=== PATIENT | female | born 1995 | race African-American/Black ===

== ENCOUNTER 2021-12-11 08:46 | Outpatient (CLI) | payer OTHER, SELFPAY ==
--- NOTE | ~2021-12-11 | US_ITS ---
EXAMINATION: US abdomen limited DATE: 12/11/2021 09:22 INDICATION: Hepatic steatosis TECHNIQUE: Multiple grayscale and Doppler ultrasound images of the abdomen were obtained. COMPARISON: None available FINDINGS: Bowel gas obscures visualization of the pancreas. The visualized portions of the pancreas a re unremarkable. The liver is normal with normal echogenicity and echotexture. No surface nodularity. Normal hepatopetal flow in the main portal vein. The gallbladder is normal with no abnormal wall thi ckening, pericholecystic fluid or stones. The normal common bile duct measures 5 mm. There was no son ographic Fitzpatrick sign. IMPRESSION: 1. Unremarkable right upper quadrant ultrasound. Reviewed, dictated and finalized at location A. UITING MANAGER
--- NOTE | ~2021-12-11 | US_ITS ---
EXAMINATION: US pelvic complete DATE: 12/11/2021 09:23 INDICATION: Ovarian cyst TECHNIQUE: Multiple transabdominal sonographic images of the pelvis were obtained. COMPARISON: None. FINDINGS: The uterus measures 9.1 x 6.5 x 3.8 cm. The endometrial complex measures 8 mm. The right ov vickie measures 2.5 x 2.1 x 1.4 cm. The left ovary measures 2.7 x 2.4 x 2.3 cm. There is normal vascular flow in the ovaries. There is no free fluid in the pelvis. IMPRESSION: 1. Unremarkable pelvic ultrasound. Reviewed, dictated and finalized at location A. TIC ROLLER
== END 2021-12-11 08:47 | disposition home or self-care (01) ==
PROVIDERS: PCP Emergency Medicine; Visit Provider Emergency Medicine
DX: K76.0 Fatty (change of) liver, not elsewhere classified (principal); N83.209 Unspecified ovarian cyst, unspecified side
CPT/HCPCS: 76705; 76856

== ENCOUNTER 2022-08-23 05:16 | Emergency (ER) | payer OTHER, SELFPAY ==
[2022-08-23 05:20] VITALS: BP 119/76; PULSE 100; RESP 20; TEMP 36.6; O2SAT 99
--- NOTE | 2022-08-23 05:52 | ED.GENADULT ---
HPI - General Adult General Chief complaint: Unspecified <Joey Golden MD - Last Filed: 08/23/22 05:53> Stated complaint: Body aches, sore throat, lightheaded with shower <Joey Golden MD - Last Filed: 08/23/22 05:53> Time Seen by Provider: 08/23/22 05:33 <Joey Golden MD - Last Filed: 08/23/22 05:53> History of Present Illness HPI narrative: Patient a 27-year-old female presents emerged from with chief complaint of body aches. The patient reports that she has had body aches sore throat a fullness feeling in her right ear and reports that this has been going on for about a day patient reports symptoms or not improved by anything and there not worsened by anything. Patient reports that she had a subjective fever at home denies vomiting reports that she felt lightheaded after she took a shower. <Joey Golden MD - Last Filed: 08/23/22 05:53> Related Data Allergies/adverse reactions: Allergies Allergy/AdvReac Type Severity Reaction Status Date / Time No Known Allergies Allergy Verified 08/23/22 05:29 <Joey Golden MD - Last Filed: 08/23/22 05:53> Review of Systems Review of Systems: A 10 system review of systems was completed on the patient and is negative except for what is stated in the HPI. Nursing and ancillary documentation was reviewed. <Joey Golden MD - Last Filed: 08/23/22 05:53> Exam Narrative: GENERAL: Well-appearing, well-nourished, and in no acute distress. HEAD: Normocephalic, atraumatic. EYES: PERRLA and EOMI. ENT: Nares clear, no rhinorrhea or epistaxis. Mucous membranes moist. NECK: Supple. CHEST: Clear to auscultation. No respiratory distress. HEART: Regular rate and rhythm. No murmur heard. Normal peripheral pulses. ABDOMEN: Soft, nontender, nondistended, normal active bowel sounds. EXTREMITIES: Normal range of motion. No edema. SKIN: Warm, dry, no rash. NEURO: No focal deficits. Alert and oriented x3. PSYCH: Normal mood and affect. <Joey Golden MD - Last Filed: 08/23/22 05:53> Course Course Emergency Course: 0808/23/22: Patient was signed out to me pending completion of her UA. UA was not indicative of infection. Patient will be discharged with the diagnosis of viral syndrome. <Fernando Rehman MD - Last Filed: 08/23/22 08:07> Vital Signs Vital signs: Vital Signs Temperature 97.8 F 08/23/22 05:20 Pulse Rate 100 08/23/22 05:20 Respiratory Rate 20 08/23/22 05:20 Blood Pressure 119/76 08/23/22 05:20 Pulse Oximetry 99 08/23/22 05:20 Oxygen Delivery Room Air 08/23/22 05:20 Temperature 97.8 F 08/23/22 05:20 Pulse Rate 100 08/23/22 05:20 Respiratory Rate 20 08/23/22 05:20 Blood Pressure 119/76 08/23/22 05:20 Pulse Oximetry 99 08/23/22 05:20 Oxygen Delivery Room Air 08/23/22 05:20 <Joey Golden MD - Last Filed: 08/23/22 05:53> Vital Signs Temperature 97.8 F 08/23/22 05:20 Pulse Rate 100 08/23/22 05:20 Respiratory Rate 20 08/23/22 05:20 Blood Pressure 119/76 08/23/22 05:20 Pulse Oximetry 99 08/23/22 05:20 Oxygen Delivery Room Air 08/23/22 05:20 Temperature 97.8 F 08/23/22 05:20 Pulse Rate 100 08/23/22 05:20 Respiratory Rate 20 08/23/22 05:20 Blood Pressure 119/76 08/23/22 05:20 Pulse Oximetry 99 08/23/22 05:20 Oxygen Delivery Room Air 08/23/22 05:20 <Fernando Rehman MD - Last Filed: 08/23/22 08:07> Medical Decision Making Vital Signs Vital Signs: Vital Signs Temperature 97.8 F 08/23/22 05:20 Pulse Rate 100 08/23/22 05:20 Respiratory Rate 20 08/23/22 05:20 Blood Pressure 119/76 10/29/22 05:20 Pulse Oximetry 99 08/23/22 05:20 Oxygen Delivery Room Air 08/23/22 05:20 Temperature 97.8 F 08/23/22 05:20 Pulse Rate 100 08/23/22 05:20 Respiratory Rate 20 08/23/22 05:20 Blood Pressure 119/76 08/23/22 05:20
[2022-08-23] MEDS: KETOROLAC 30 MG/ML VIAL (*BKC) IM (06:07)
[2022-08-23 06:19] LABS: Mucus Urine Few /lpf; Squamous Epithelial Cell Urine Few /hpf (Few); WBC Urine 0-3 /hpf
[2022-08-23 06:20] LABS: Influenza A QL RT-PCR Negative (Negative); Influenza B QL RT-PCR Negative (Negative); SARS-CoV-2 RNA PCR Negative
[2022-08-23 07:09] LABS: Appearance Urine Clear (Clear); Bilirubin Urine Negative (Negative); Blood Urine 2+ (Negative); Color Urine Yellow (Yellow); Glucose Urine UA Negative (Negative); Ketones Urine Negative (Negative); Leukocyte Esterase Ur Negative LEU/UL (Negative); Nitrate Urine Negative (Negative); Protein Urine Negative (Negative); Specific Grav Ur >= 1.030 (1.001-1.035); Urobilinogen Urine 0.2 mg/dL (<2.0); pH Urine 5.5 (5.0-9.0)
[2022-08-23 07:11] LABS: Add Urine Microscopic? YES
[2022-08-23 08:21] VITALS: BP 108/80; PULSE 82; RESP 18; O2SAT 99
== END 2022-08-23 08:23 | disposition home or self-care (01) ==
PROVIDERS: Emergency Provider Emergency Medicine; PCP Emergency Medicine
DX: B34.9 Viral infection, unspecified (principal); Z20.822 Contact with and (suspected) exposure to COVID-19
CPT/HCPCS: 81001; 81025; 87081; 87147; 87502; 87880; 96372; 99283; J1885; U0003; U0005

== ENCOUNTER 2022-12-04 11:08 | Outpatient (CLI) | payer OTHER, SELFPAY ==
--- NOTE | ~2022-12-04 | MMUS_ITS ---
EXAMINATION: MM diagnostic sandy LT w herbie, US breast LT complete HISTORY: Left breast pain TECHNIQUE: Full field and spot 3-D tomosynthesis images of the left breast were performed and synthet ic 2-D images were generated. CAD analysis was submitted and interpreted. High resolution complete le ft breast ultrasound examination including all 4 quadrants and subareolar area was performed. COMPARISON: 03/28/2021 mammographic localization procedure, left breast 02/19/2021 left mammogram BREAST PARENCHYMAL COMPOSITION: The breasts are heterogeneously dense, which may obscure small masses . FINDINGS: MAMMOGRAPHIC FINDINGS: There is a history of previous benign biopsy of the left breast. There is architectural distortion at mid to posterior depth in the inner aspect of the left breast at site of prior mammographic preopera tive localization (03/28/2021). This may be postsurgical change. No suspicious mass, architectural distortion, malignant calcification, skin thickening or retraction is noted otherwise. ULTRASOUND: 12:00 6 cm from nipple: Parallel circumscribed approximately 4.4 x 10 mm hypoechoic solid lesion with some central fatty tissue, likely a benign lymph node. No internal vascularity or posterior shadowin g. 3:00 1 cm from nipple: Parallel circumscribed 4 x 7 mm hypoechoic lesion without internal vascularity or posterior shadowing, benign in appearance No suspicious mass or shadowing is detected. IMPRESSION: 1. Benign findings 2. Routine mammographic screening is recommended BI-RADS Category 2: Benign finding(s). Reviewed, dictated and finalized at location A. NESS ACCOUNT EXECUTIVE IMPRESSION: 1. Benign findings 2. Routine mammographic screening is recommended BI-RADS Category 2: Benign finding(s).
== END 2022-12-04 11:09 | disposition home or self-care (01) ==
PROVIDERS: PCP Emergency Medicine; Visit Provider Nurse Practitioner Obstetrics & Gynecology
DX: N63.0 Unspecified lump in unspecified breast (principal); N64.4 Mastodynia
CPT/HCPCS: 76641; 77061; 77065; G0279

== ENCOUNTER 2024-01-07 07:07 | Emergency (ER) | payer OTHER, SELFPAY ==
[2024-01-07 07:08] VITALS: BP 146/99; PULSE 104; RESP 18; TEMP 36.9; O2SAT 99
--- NOTE | 2024-01-07 07:11 | ECG_ITS ---
Measurements Intervals [place] Rate: 95 P: 28 MS: 149 QRS: 5 QRSD: 90 T: 29 QT: 341 QTc: 429 Interpretive Statements SINUS RHYTHM VOLTAGE CRITERIA FOR LVH MINIMAL Q WAVES- HIGH LATERAL LEADS NONSPECIFIC T-WAVE ABNORMALITY- INF/LAT LEADS BORDERLINE ECG NO PREVIOUS ECG AVAILABLE FOR COMPARISON Electronically Signed On 01-07-2024 9:04:09 CDT by Blue Day D.O.
[2024-01-07 08:03] LABS: Influenza A QL RT-PCR Negative (Negative); Influenza B QL RT-PCR Negative (Negative); RSV RNA, RT-PCR Negative (Negative); SARS-CoV-2 RNA PCR Negative (Negative)
--- NOTE | 2024-01-07 08:41 | PC.NURSE ---
PT CAME UP TO DESK AND ASKED HOW MUCH LONGER WILL HER WAIT BE. PT WAS INFORMED THAT SHE WILL BE TAKEN BACK SOON POSSIBLE WHEN A ROOM BECOMES AVAILABLE FOR HER. SHE THEN WANTED TO KNOW THE RESULTS OF HER SWAB. I INFORMED THE PT THAT I WAS UNABLE TO GIVE HER THE RESULTS BUT THAT SHE HAD THE ABILITY TO LOOK AT RESULTS ON THE PATIENT PORTAL AND I PROVIDED THE PT A BROCHURE. PT THEN LOOKED AT THE BROCHURE AND THEN JUST WALKED OUT OF THE ED WITH A STEADY GAIT. SHE APPEARED IN NO ACUTE DISTRESS.
== END 2024-01-07 10:05 | disposition left against medical advice (07) ==
PROVIDERS: Emergency Provider Emergency Medicine; PCP Emergency Medicine
DX: R05.9 Cough, unspecified (principal); Z20.822 Contact with and (suspected) exposure to COVID-19
CPT/HCPCS: 87637; 93005; 99199

== ENCOUNTER 2024-07-12 15:34 | Outpatient (CLI) | payer OTHER, SELFPAY ==
--- NOTE | ~2024-07-12 | US_ITS ---
EXAMINATION: US right upper quadrant DATE: 07/12/2024 16:13 INDICATION: Burning pain TECHNIQUE: Multiple grayscale and Doppler ultrasound images of the right upper quadrant were obtained . COMPARISON: Ultrasound abdomen 12/11/2021. FINDINGS: The visualized portions of the pancreas are normal. The liver is normal with normal echogen icity and echotexture. No surface nodularity. Normal hepatopetal flow in the main portal vein. The ga llbladder is normal with no abnormal wall thickening, pericholecystic fluid or stones. The common delaney e duct measures 3 mm. There was no sonographic Fitzpatrick sign. Right kidney measures 11.2 x 6.2 x 5.3 cm and is sonographically normal IMPRESSION: Normal right upper quadrant ultrasound findings. Reviewed, dictated and finalized at location K.
== END 2024-07-12 15:35 | disposition home or self-care (01) ==
PROVIDERS: PCP Emergency Medicine; Visit Provider Emergency Medicine
DX: R10.9 Unspecified abdominal pain (principal)
CPT/HCPCS: 76705